=== PATIENT | male | born 1945 | race Caucasian/White ===

== ENCOUNTER 2018-04-14 07:34 | Day surgery (SDC) | payer MEDICARE, OTHER ==
[~2018-04-14 07:34] MED LIST: Lactated Ringers 1,000 ML IV SCH
[2018-04-14] MEDS ORDERED: fentaNYL 100 MCG/2 ML SDV ONE (08:56)
[2018-04-14] MEDS ORDERED: Propofol 200 MG/20 ML SDV ONE ×2 (08:56→10:02)
--- NOTE | 2018-04-14 11:48 | OR ---
PREOPERATIVE DIAGNOSIS: Screening colonoscopy. POSTOPERATIVE DIAGNOSES: 1. Hepatic flexure polyp, 110 cm, removed. 2. Extensive diverticulosis. PROCEDURE PROPOSED: Total flexible colonoscopy. PROCEDURE DONE: Total flexible colonoscopy with hot snare polypectomy x1. INDICATION: This is a 72-year-old gentleman who comes in for recommended screening colonoscopy. His last examination was at about age 60, 12 years ago. He denies any symptomatology and he has a negative family history for colon cancer or polyps. TECHNIQUE: The patient brought to the endoscopy suite, placed in left lateral decubitus position. He was sedated per FIELD ARTILLERY BASIC with propofol. The flexible video colonoscope was then passed transanally and under visualization advanced to the cecum. Examination revealed a normal cecal area. In the hepatic flexure, there was a polyp that was removed by hot snare technique and retrieved with suction measuring less than 5 mm. The transverse colon was unremarkable. The sigmoid and descending colon revealed rather extensive diverticulosis with fairly large diverticular orifices and he had several fecal balls collecting in the low rectosigmoid, most likely coming out of some of these deep pockets after his bowel preparation. I was able to get an adequate look, had to do a fair amount of irrigation and suctioning, totalling about 200 mL of fluid that was removed from his colon. No other abnormalities were noted through the rectosigmoid, other than the diverticulosis and the scope was then withdrawn. He tolerated the procedure well. FINAL IMPRESSION: 1. Extensive left colon diverticulosis. 2. Polyp at hepatic flexure, removed. PLAN: He will be sent a letter with the pathology report. If this is an adenomatous polyp, he may have to have 1 more examination in 5 years time. I will let him know that in the letter. SCM: 04/14/2018 10:21:11 MODL: 04/14/2018 11:44:20 /[id number]
== END 2018-04-14 11:30 | disposition home or self-care (01) ==
LOC: VM.SDS 07:34
PROVIDERS: ATTEND Surgery
DX: Z12.11 Encounter for screening for malignant neoplasm of colon (principal); D12.3 Benign neoplasm of transverse colon; K57.30 Diverticulosis of large intestine without perforation or abscess without bleeding; I50.22 Chronic systolic (congestive) heart failure; E66.9 Obesity, unspecified; Z68.39 Body mass index [BMI] 39.0-39.9, adult; E78.00 Pure hypercholesterolemia, unspecified; I48.91 Unspecified atrial fibrillation; I25.10 Atherosclerotic heart disease of native coronary artery without angina pectoris; Z87.891 Personal history of nicotine dependence; Z79.01 Long term (current) use of anticoagulants; Z79.899 Other long term (current) drug therapy
CPT/HCPCS: 00811; 36415; 85610; J2704; J3010; J7120

== ENCOUNTER 2021-03-08 10:23 | Emergency (ER) | payer MEDICARE, OTHER ==
--- NOTE | 2021-03-08 10:57 | EDM.PDOC ---
ED HPI GENERAL MEDICAL PROBLEM - General Chief Complaint: ENT Problem Stated Complaint: NOSE PROBLEM Time Seen by Provider: 03/08/21 10:40 Source of Information: Reports: Patient History Limitations: Reports: No Limitations - History of Present Illness INITIAL COMMENTS - FREE TEXT/NARRATIVE: Patient presents to the ED for concern for foreign body in the right nostril. He has frequent bloody noses and had one this morning. He used tissue and direct pressure to stop it. He removed the tissue and was worried he had some left in there. His checked and could see anything. He is on coumadin and his physician told him to use saline nose spray this winter to help with nasal dryness and to help prevent nosebleeds. Onset: Today - Related Data Allergies Allergy/AdvReac Type Severity Reaction Status Date / Time No Known Allergies Allergy Verified 03/08/21 11:02 Home Meds: Home Meds Acetaminophen 500 mg PO Q4HR PRN 04/11/18 [History] Cholecalciferol (Vitamin D3) [D-2000] 2,000 unit PO DAILY 04/11/18 [History] Furosemide 40 mg PO BID 04/11/18 [History] Lisinopril 30 mg PO DAILY 04/11/18 [History] Sennosides/Docusate Sodium [Senokot-S Tablet] 1 tab PO BID PRN 04/11/18 [History] Warfarin [Coumadin] 5 mg PO ASDIRECTED 04/11/18 [History] carvediloL [Carvedilol] 12.5 mg PO BIDMEALS 04/11/18 [History] atorvaSTATin Calcium [Lipitor] 20 mg PO DAILY 03/08/21 [History] Past Medical History Cardiovascular History: Reports: Afib, High Cholesterol Other Cardiovascular History: coronary atherosclerosis Respiratory History: Other Respiratory History: nocturnal hypoxemia Genitourinary History: Reports: None Musculoskeletal History: Reports: Arthritis Psychiatric History: Reports: None Endocrine/Metabolic History: Reports: Obesity/BMI 30+ Other Endocrine/Metabolic History: hyperglycemia Hematologic History: Reports: None Immunologic History: Reports: None Oncologic (Cancer) History: Reports: None Dermatologic History: Reports: None - Past Surgical History HEENT Surgical History: Reports: None Cardiovascular Surgical History: Reports: Coronary Artery Bypass Musculoskeletal Surgical History: Reports: None Social & Family History - Recreational Drug Use Recreational Drug Use: No Drug Use in Last 12 Months: No ED ROS ENT - Review of Systems Review Of Systems: See Below Constitutional: Reports: No Symptoms HEENT: Reports: Nosebleed (right sided earlier, better now) Respiratory: Reports: No Symptoms Cardiovascular: Reports: No Symptoms Endocrine: Reports: No Symptoms GI/Abdominal: Reports: No Symptoms : Reports: No Symptoms Musculoskeletal: Reports: No Symptoms Skin: Reports: No Symptoms ED EXAM, ENT - Physical Exam Exam: See Below Exam Limited By: No Limitations General Appearance: Alert, WD/WN, No Apparent Distress Eye Exam: Bilateral Eye: EOMI, Normal Inspection, PERRL Ears: Normal External Exam Nose: Nasal Swelling (bilateral, rigth greater than left with some slight erythema on the right but no active bleeding). No: Nasal Ecchymosis, Septal Deformity, Septal Hematoma, Septal Perforation, Active Bleeding, Dried Blood, Injected Turbinates Mouth/Throat: Normal Inspection, Normal Lips, Normal Oropharynx. No: Tonsillar Exudates Head: Atraumatic Neck: Normal Inspection Respiratory/Chest: No Respiratory Distress, Lungs Clear Cardiovascular: Normal Peripheral Pulses Course - Vital Signs Last Recorded V/S: Last Vital Signs Temp 37.3 C 03/08/21 10:33 Pulse 84 03/08/21 10:33 Resp 18 03/08/21 10:33 BP 123/76 03/08/21 10:33 Pulse Ox 96 03/08/21 10:33 - Re-Assessments/Exams Free Text/Narrative Re-Assessment/Exam: 03/08/21 10:53 patient has significant swelling both sides nasal mucosa. erythema on the right, no active bleeding. Advised saline nose spray bitd as needed. afrin on a cotton ball and placed in nostril with pressure x 10 minutes for nose bleed in the future, advised against frequent use as could cause rebound stuffiness. Departure - Departure Time of Disposition: 10:50 Disposition: Home, Self-Care 01 Condition: Good Clinical Impression: Nasal swelling - Discharge Information *PRESCRIPTION DRUG MONITORING PROGRAM REVIEWED*: No *COPY OF PRESCRIPTION DRUG MONITORING REPORT IN PATIENT JACKIE: No Referrals: Laura Mcgee DO [Primary Care Provider] - Additional Instructions: No foreign body is seen in the nose. You do have significant swelling in both side of the inner nose. Bleeding is stopped on the right. Purchase some saline nasal spray and you can use up to two times a day for dryness. If yo develop a bloody nose, soak a cotton ball in afrin nasal spray, place in the nostril and pinch with pressure for 10 minutes. this should cause the bleeding to stop. Do not use this daily, but helps bleeding stop when needed, especially on a blood thinner. Sepsis Event Note (ED) - Focused Exam Vital Signs: Vital Signs Temp Pulse Resp BP Pulse Ox 03/08/21 10:33 37.3 C 84 18 123/76 96
== END 2021-03-08 10:57 | disposition home or self-care (01) ==
LOC: VM.ED 10:23
DX: R22.0 Localized swelling, mass and lump, head (principal); I48.91 Unspecified atrial fibrillation; E78.00 Pure hypercholesterolemia, unspecified; E66.9 Obesity, unspecified; Z68.30 Body mass index [BMI] 30.0-30.9, adult; Z79.01 Long term (current) use of anticoagulants; Z79.899 Other long term (current) drug therapy
CPT/HCPCS: 99282

== ENCOUNTER 2021-07-24 09:49 | Emergency (ER) | payer MEDICARE, OTHER | END 2021-07-24 10:34 | disposition home or self-care (01) | LOC: VM.ED 09:49 | DX: J20.9 Acute bronchitis, unspecified (principal); E78.00 Pure hypercholesterolemia, unspecified; E66.9 Obesity, unspecified; Z68.30 Body mass index [BMI] 30.0-30.9, adult; Z79.899 Other long term (current) drug therapy; Z79.01 Long term (current) use of anticoagulants | CPT/HCPCS: 99283 ==

== ENCOUNTER → 2023-02-10 | Day surgery (SDC) | payer MEDICARE, OTHER ==
[~2023-02-10] MED LIST changes: -Lactated Ringers 1,000 ML IV SCH; +Midazolam 1 MG/ML 2 ML SDV ONE; +Propofol 200 MG/20 ML SDV ONE; +fentaNYL 100 MCG/2 ML SDV ONE
[2023-02-10] MEDS: Lactated Ringers 1,000 ML IV SCH (10:20)
== END ==
LOC: VM.SDS 09:53
PROVIDERS: ATTEND Family Medicine
DX: J34.89 Other specified disorders of nose and nasal sinuses (principal); Z53.8 Procedure and treatment not carried out for other reasons
CPT/HCPCS: J2250; J2704; J3010; J7120

== ENCOUNTER → 2023-08-05 | Day surgery (SDC) | payer MEDICARE, OTHER ==
[~2023-08-05] MED LIST changes: +Lactated Ringers 1,000 ML IV SCH
[2023-08-05] MEDS: Lactated Ringers 1,000 ML IV SCH (06:49)
[2023-08-05 07:07] LABS: INR 1.1 (0.9-1.1); PROTHROMBIN TIME 11.3 SEC (8.9-11.5)
[2023-08-05 09:01] LABS: EST CRCL DRUG DOSING (CG) 66.84 mL/min
[2023-08-05] MEDS: Iopamidol 612 MG/ML 100 ML Bottle IVPUSH ONE (09:50)
== END ==
LOC: VM.SDS 06:13
PROVIDERS: ATTEND Student in an Organized Health Care Education/Training Program
DX: C18.4 Malignant neoplasm of transverse colon (principal); K29.50 Unspecified chronic gastritis without bleeding; I50.22 Chronic systolic (congestive) heart failure; E78.00 Pure hypercholesterolemia, unspecified; I25.10 Atherosclerotic heart disease of native coronary artery without angina pectoris; I48.91 Unspecified atrial fibrillation; D50.9 Iron deficiency anemia, unspecified; Z95.1 Presence of aortocoronary bypass graft; E66.9 Obesity, unspecified; Z68.41 Body mass index [BMI] 40.0-44.9, adult; Z79.899 Other long term (current) drug therapy
CPT/HCPCS: 00813; 71250; 74177; 82378; 82565; 82947; 85610; 99100; J2250; J2704; J3010; J7120; Q9967

== ENCOUNTER 2024-08-03 07:39 | Day surgery (SDC) | payer MEDICARE, OTHER ==
[2024-08-03] MEDS: Lactated Ringers 1,000 ML IV SCH (07:56)
[2024-08-03 08:14] LABS: INR 1.1 (0.9-1.1); PROTHROMBIN TIME 11.5 SEC (9.6-12.0)
[2024-08-03] MEDS ORDERED: Propofol 200 MG/20 ML SDV ONE ×2 (09:00→09:24)
[2024-08-03] MEDS ORDERED: Midazolam 1 MG/ML 2 ML SDV ONE (09:24)
[2024-08-03] MEDS ORDERED: fentaNYL 100 MCG/2 ML SDV ONE (09:24)
== END 2024-08-03 13:07 | disposition home or self-care (01) ==
LOC: VM.SDS 07:39
PROVIDERS: ATTEND Student in an Organized Health Care Education/Training Program
DX: Z12.11 Encounter for screening for malignant neoplasm of colon (principal); Z85.038 Personal history of other malignant neoplasm of large intestine; I48.91 Unspecified atrial fibrillation; E11.22 Type 2 diabetes mellitus with diabetic chronic kidney disease; N18.2 Chronic kidney disease, stage 2 (mild); I50.32 Chronic diastolic (congestive) heart failure; E66.813 Obesity, class 3; Z68.41 Body mass index [BMI] 40.0-44.9, adult
CPT/HCPCS: 36415; 82947; 85610; G0105; J2250; J2704; J3010; J7120